=== PATIENT | female | born 1965 | race Caucasian/White ===

== ENCOUNTER 2016-10-29 19:11 | Emergency (ER) | payer OTHER ==
[2016-10-29 19:36] VITALS: BP 129/68; PULSE 76; TEMP 98.1; BMI 25.3
--- NOTE | 2016-10-29 20:12 | PDOC ---
History of Present Illness - General History Source: Patient Exam Limitations: No Limitations - History of Present Illness Initial Comments: 10/29/16 20:37 The patient is a 51 year old female with no significant past medical history who presents to the ED with acute onset of dizziness and nausea. Patient reports she was in her usual state of health when she suddenly developed nausea and dizziness, which she describes as the room spinning. She states around dinner time today, her symptoms worsen. Patient denies any recent URI, recent travels, or head trauma. She also has complaints of nasal congestion, frontal headache, and few episodes of vomiting that began today. The patient denies fever, chills, cough, SOB, chest pain, abdominal pain, and diarrhea. Allergies: NKDA Social History: No alcohol, tobacco, or drug use reported. Family History: Cardiac disease Past Surgical History: None reported PCP: None reported <Kristen Logan - Last Filed: 10/29/16 21:54> - General History Source: Patient <MananJared limon - Last Filed: 10/29/16 21:58> - General Chief Complaint: Nausea/Vomiting Stated Complaint: SOB Time Seen by Provider: 10/29/16 20:12 Past History <Kristen Logan - Last Filed: 10/29/16 21:54> - Past Medical History Anemia: No Asthma: No Cancer: No Cardiac Disorders: No CVA: No COPD: No DVT: No Dementia: No Diabetes: No Dialysis: No GI Disorders: No Disorders: No HTN: No Hypercholesterolemia: No HIV: No Kidney Stones: No Liver Disease: No Psychiatric Problems: No Seizures: No Thyroid Disease: No Lung CA: No - Surgical History Abdominal Surgery: No Appendectomy: No Cardiac Surgery: No Cholecystectomy: No Gastric Stapling: No GI Surgery: No Lung Surgery: No Neurologic Surgery: No - Immunization History Immunization Up to Date: Yes - Psycho/Social/Smoking Cessation Hx Anxiety: No Suicidal Ideation: No Smoking History: Current every day smoker Have you smoked in the past 12 months: Yes Information on smoking cessation initiated: Yes Hx Alcohol Use: No Drug/Substance Use Hx: No Substance Use Type: None <Jared Krause - Last Filed: 10/29/16 21:58> - Past Medical History Allergies/Adverse Reactions: Allergies Allergy/AdvReac Type Severity Reaction Status Date / Time No Known Allergies Allergy Verified 10/29/16 20:47 Home Medications: Ambulatory Orders Amox-Tr/K Cl [Augmentin 875Mg Tablet] 1 tab PO BID #20 tablet 10/29/16 Meclizine HCl 25 mg PO TID #30 tablet 10/29/16 Review of Systems - Review of Systems Able to Perform ROS?: Yes Comments:: 10/29/16 20:37 CONSTITUTIONAL: Absent: fever, no chills, no fatigue EYES: Absent: visual changes ENT: +nasal congestion Absent: ear pain, no sore throat CARDIOVASCULAR: Absent: chest pain, no palpitations RESPIRATORY: Absent: cough, no SOB GI: +nausea, vomiting Absent: abdominal pain, no constipation, no diarrhea GENITOURINARY: Absent: dysuria, no frequency, no hematuria MUSKULOSKELETAL: Absent: back pain, no arthralgia, no myalgia SKIN: Absent: rash NEURO: +frontal headache, dizziness <Kristen Logan - Last Filed: 10/29/16 21:54> *Physical Exam - Vital Signs Last Vital Signs Temp Pulse Resp BP Pulse Ox 98.1 F 76 20 129/68 99 10/29/16 19:29 10/29/16 19:29 10/29/16 19:29 10/29/16 19:29 10/29/16 19:29 - Physical Exam Comments: 10/29/16 20:37 GENERAL: Well-appearing, well-nourished. No apparent distress. HEENT: Normocephalic, atraumatic. PERRL, EOM intact. Slight nystagmus bilaterally to the left. Fluid behind right TM. Positive bulging. CARDIOVASCULAR: Normal S1, S2. Regular rate and rhythm. PULMONARY: Clear to auscultation bilaterally. ABDOMEN: Soft, non-distended, non-tender. EXTREMITIES: Normal ROM in all four extremities. No gross deformities. SKIN: Warm, dry. No rash NEUROLOGICAL: No focal neurological deficits. <Kristen Logan - Last Filed: 10/29/16 21:54> - Vital Signs Last Vital Signs Temp Pulse Resp BP Pulse Ox 98.1 F 76 20 129/68 99 10/29/16 19:29 10/29/16 19:29 10/29/16 19:29 10/29/16 19:29 10/29/16 19:29 <Jared Krause - Last Filed: 10/29/16 21:58> ED Treatment Course - LABORATORY CBC & Chemistry Diagram: 10/29/16 20:25 10/29/16 20:25 <Kristen Logan - Last Filed: 10/29/16 21:54> - LABORATORY CBC & Chemistry Diagram: 10/29/16 20:25 10/29/16 20:25 <Jared Krause - Last Filed: 10/29/16 21:58> Medical Decision Making - Medical Decision Making 10/29/16 21:57 Dr. Krause: The scribe's documentation has been prepared under my direction and personally reviewed by me in its entirery. I confirm that the note above accurately reflects all work, treatment, procedures, and medical decision making performed by me. All studies returned to be negative. Patient found to have fluid behind right TM> Will treat for an otitis as well as vertigo <Jared Krause - Last Filed: 10/29/16 21:58> *DC/Admit/Observation/Transfer - Attestations Scribe Attestion: 10/29/16 20:37 Documentation prepared by Kristen Logan, acting as diploma medical assistant for Jared Krause MD <Kristen Logan - Last Filed: 10/29/16 21:54> - Discharge Dispostion Admit: No <Jared Krause - Last Filed: 10/29/16 21:58> Diagnosis at time of Disposition: Vertigo Right otitis media Qualifiers: Chronicity: acute Spontaneous tympanic membrane rupture: without spontaneous rupture - Discharge Dispostion Disposition: HOME Condition at time of disposition: Stable - Prescriptions Prescriptions: Amox-Tr/K Cl [Augmentin 875Mg Tablet] 1 tab PO BID #20 tablet Meclizine HCl 25 mg PO TID #30 tablet - Patient Instructions Printed Discharge Instructions: Middle Ear Infection, DI for Vertigo
[2016-10-29] MEDS ORDERED: ONDANSETRON *ODT* 4 MG TABLET SL ONE (20:22)
[2016-10-29] MEDS ORDERED: MECLIZINE HCL 25 MG TABLET (FP) PO STA (20:22)
[2016-10-29] MEDS ORDERED: SODIUM CHLORIDE 1,000 ML IV STA (20:26)
[2016-10-29] MEDS ORDERED: ONDANSETRON 4 MG/2 ML VIAL IVPUSH STA (20:26)
[2016-10-29] MEDS ORDERED: MECLIZINE HCL 25 MG TABLET (FP) ONE (20:49)
[2016-10-29 20:52] LABS: BASOPHIL 0.5 % (0-2.0); MCH 21.3 pg (25.7-33.7); MCHC 31.2 g/dl (32.0-36.0); MEAN CELL VOLUME 68.2 fl (80-96); MEAN PLT VOLUME 7.3 fl (7.5-11.1); NEUTROPHILS 79.5 % (42.8-82.8); PLATELET COUNT 275 K/MM3 (134-434); RDW 20.3 % (11.6-15.6); WHITE BLOOD COUNT 8.8 K/mm3 (4.0-10.0)
[2016-10-29 21:23] LABS: ALBUMIN 3.7 g/dl (3.4-5.0); ANION GAP 8 (8-16); BILIRUBIN,TOTAL 0.2 mg/dL (0.2-1.0); CALCIUM 8.5 mg/dL (8.5-10.1); CO2 25 mmol/L (21-32); CREATININE 0.6 mg/dL (0.55-1.02); GLUCOSE,RANDOM 77 mg/dL (74-106); PLATELET ESTIMATE ADEQUATE (NORMAL); SGOT/AST 14 U/L (15-37); SGPT/ALT 18 U/L (12-78); TOT PROT 7.9 g/dl (6.4-8.2)
[2016-10-29 21:24] LABS: ANISOCYTOSIS 1+; HYPOCHROMIA 2+; MICROCYTOSIS 1+
[2016-10-29 21:26] LABS: ALK PHOS 66 U/L (45-117); TROPONIN I < 0.02 ng/ml (0.00-0.05)
[2016-10-29] MEDS ORDERED: AMOX TR/POT CLAV 875MG/125MG TABLETS (FP) PO STA (21:54)
[2016-10-29] MEDS ORDERED: AMOX TR/POT CLAV 875MG/125MG TABLETS (FP) ONE (22:00)
== END 2016-10-29 22:14 | disposition home or self-care (01) ==
LOC: JER 19:11
DX: H66.91 Otitis media, unspecified, right ear (principal)
CPT/HCPCS: 36415; 70450-TC; 70486-TC; 80053; 82550; 84484; 85025; 99282-25